=== PATIENT | male | born 1985 ===

== ENCOUNTER 2018-05-31 15:13 | Inpatient (IN) | payer SELFPAY ==
[2018-05-31] MEDS ORDERED: Midazolam HCl 5 mg/ml Vial ONE ×2 (15:19→15:42)
[2018-05-31] MEDS ORDERED: Lorazepam 2 MG/ML VIAL ONE (15:33)
[2018-05-31 15:37] LABS: #Basophils 0.1 thou/uL (0.0-0.2); #Eosinphils 0.1 thou/uL (0.0-0.7); #Lymphocytes 3.2 thou/uL (1.20-3.40); #Monocytes 0.8 thou/uL (0.11-0.59); #Neutrophils 6.4 thou/uL (1.40-6.50); %Basophils 1.3 % (0.0-1.0); %Eosinophils 1.3 % (0.0-10.0); %Lymphocytes 29.5 % (21.0-51.0); %Monocytes 7.8 % (0.0-10.0); %Neutrophils 60.2 % (42.0-75.0); Hemoglobin 15.2 g/dL (14.0-18.0); Mean Corpuscular HGB CONC 33.7 g/dL (32.0-36.0); Mean Corpuscular Hemoglobin 33.5 pg (27.0-31.0); Mean Corpuscular Volume 99.4 fL (78.0-98.0); Mean Platelet Volume 7.5 fL (7.4-10.4); Platelet Count 196 thou/uL (130-400); RBC Distribution Width 12.1 % (11.5-14.5); Red Blood Cell (RBC) Count 4.52 mill/uL (4.70-6.10); White Blood Cell (WBC) Count 10.7 thou/uL (4.8-10.8)
[2018-05-31 15:45] LABS: INR-International Normal Ratio 1.1; PTT 28.6 SEC (22.9-36.1); Prothrombin Time 14.2 SEC (12.0-14.7)
--- NOTE | 2018-05-31 15:54 | RAD ---
AP CHEST: 05/31/18 HISTORY: Shortness of breath and chest pain. Supine portable exam obtained. ET tube has been placed and the tip is well above the nitish. The lung lindsay are well aerated and clear. Heart and mediastinum unremarkable. The visualized osseous structures appear intact. IMPRESSION: No acute process identified. POS: [facility]
[2018-05-31 15:56] LABS: Troponin I Less than 0.010 ng/mL (< 0.028)
[2018-05-31 16:10] LABS: Acetaminophen Less than 6.0 mcg/mL (10.0-30.0); Alcohol Less than 10 mg/dL (Less than 10); Salicylate Less than 8.0 mg/dL (15.0-30.0)
[2018-05-31 16:14] LABS: Actual Bicarbonate (HCO3a) 24.8 mEq/L (22-28); Analyzer IN Cardio ER; Base Excess (BEa) -2.7 mEq/L (-2.0 to +3.0); CO2 Tension 53.7 mmHg (35.0-45.0); Calcium, Ionized 1.18 mmol/L (1.12-1.30); Carboxyhemoglobin (COHb) 3.9 gm% (0.0-3.0); Hemoglobin (Hb) 15.5 g/dL (14.0-18.0); O2 Tension (PaO2) 329.9 mmHg (80.0-100.0); Potassium - ABG Lab 4.42 mmol/L (3.70-5.30); pH, Arterial 7.28 (7.35-7.45)
[2018-05-31 16:16] LABS: ALV-art Gradient -40.525 (0-20); Puncture Site RB
--- NOTE | 2018-05-31 16:19 | CT ---
CT HEAD WITHOUT CONTRAST: INDICATIONS: Seizure. Respiratory depression. The patient is currently intubated. COMPARISON: No comparison films. TECHNIQUE: Multiple axial tomograms obtained through the head without IV enhancement. FINDINGS: The ventricles are mildly prominent for age. There is no evidence of mass or hemorrhage. There is a bnormal white matter lucency seen in both cerebral hemispheres. There is a question of sulcal efface ment in the frontal lobes. The paranasal sinuses are aerated. The bony calvarium is unremarkable. IMPRESSION: Abnormal lucency in the deep white matter of both cerebral hemispheres. Questionable sulcal effaceme nt of the frontal lobes. These findings are abnormal in this aged patient. Recommend further evaluation with MRI brain. POS: [facility]
--- NOTE | 2018-05-31 16:20 | CT ---
CT CERVICAL SPINE: INDICATIONS: Seizure. Found unconscious. TECHNIQUE: Multiple axial tomograms obtained through the cervical spine with multiplanar reconstruction. FINDINGS: The cervical vertebrae maintain normal height and alignment. Disk spaces are preserved. No evidence of a cervical spine fracture identified. IMPRESSION: No evidence of cervical spine fracture. POS: [facility]
[2018-05-31] MEDS ORDERED: Propofol 1,000 MG/100 ML VIAL IV ONE (16:27)
--- NOTE | 2018-05-31 16:29 | RAD ---
SUPINE CHEST: HISTORY: Seizure. Found unconscious. FINDINGS: ET tube is in place. An NG tube has been placed, and the tip overlies the left upper quadrant. The lung lindsay appear clear. The ET tube is well above the nitish. IMPRESSION: Endotracheal tube and nasogastric tube appear normally positioned. No acute process apparent. POS: [facility]
[2018-05-31 16:34] LABS: Carbamazepine-Tegretol Less than 1.9 ug/mL (4.0-12.0)
[2018-05-31] MEDS ORDERED: levETIRAcetam 500 MG/100 ML PREMIX BAG ONE (17:00)
[2018-05-31 17:02] LABS: Albumin 4.1 g/dL (3.5-5.0)
[2018-05-31 17:03] LABS: Chloride 105 mmol/L (98-107)
[2018-05-31 17:04] LABS: Calcium 8.9 mg/dL (7.8-10.44); Potassium 5.4 mmol/L (3.5-5.1); Sodium 138 mmol/L (136-145)
[2018-05-31 17:05] LABS: Globulin 3.3 g/dL (2.4-3.5); Glucose 109 mg/dL (70-105); Protein, Total 7.4 g/dL (6.0-8.3)
[2018-05-31 17:06] LABS: Anion Gap 18 mmol/L (10-20); Carbon Dioxide 20 mmol/L (22-29)
[2018-05-31 17:07] LABS: Bilirubin, Total 0.3 mg/dL (0.2-1.2)
[2018-05-31 17:08] LABS: Alkaline Phosphatase 79 U/L (40-150); Calc. Creatinine Clearance 0 mL/min (70-130); Estimated GFR-MDRD 68
[2018-05-31 17:09] LABS: BUN (Urea Nitrogen) 6 mg/dL (8.9-20.6)
[2018-05-31 17:10] LABS: AST (SGOT) 24 U/L (5-34)
[2018-05-31 17:10] LABS: Amphetamine Not Detected (NotDetected); Barbiturates Screen Not Detected (NotDetected); Benzodiazepine Screen Detected (NotDetected); Cocaine Metabolite Screen Not Detected (NotDetected); Medtox Control Line Valid? VALID (VALID); Medtox Reader # READER 4; Methadone Not Detected (NotDetected); Methamphetamine Not Detected (NotDetected); Opiate Screen Not Detected (NotDetected); Oxycodone Screen Not Detected (NotDetected); Phencyclidine (PCP) Not Detected (NotDetected); THC/Cannabinoid Screen Detected (NotDetected); Tricyclic Screen Not Detected (NotDetected)
[2018-05-31 17:11] LABS: ALT (SGPT) 17 U/L (8-55); CK (CPK) 130 U/L (30-200)
[2018-05-31 17:16] LABS: Bilirubin Negative (Negative); Blood, Urine Negative (Negative); Clarity CLEAR (Clear); Glucose, Urine (Dipstick) Negative (Negative); Leukocyte Negative (Negative); Nitrite Negative (Negative); Protein, Urine (Dipstick) 100 mg/dL (Neg-Trace); Specific Gravity, Urine 1.025 (1.002-1.036); Urobilinogen 0.2 mg/dL (0.2-1.0)
[2018-05-31 17:19] LABS: Bacteria/HPF None Seen HPF (None Seen); Pathc Cast-AUWi Flag 2.47 (0-2.49)
[2018-05-31 17:28] LABS: Hyaline Casts/LPF 0-3 HYALINE CAST LPF (0-3 Hyaline)
[2018-05-31 17:29] LABS: Renal Epithelial 0-3 HPF (0-3); Transitional Epithelial 0-3 HPF (0-3)
[2018-05-31] MEDS ORDERED: Lacri-Lube Opth Oint 3.5 GM TUBE EA EYE PRN (17:40)
[2018-05-31] MEDS ORDERED: Acetaminophen 650 MG Suppository PR PRN (17:40)
[2018-05-31] MEDS ORDERED: Ondansetron HCl/PF 4 MG/2 ML Vial IVP PRN (17:40)
[2018-05-31] MEDS ORDERED: Acetaminophen 650 MG/20.3 ML UDCUP PO PRN (17:40)
[2018-05-31] MEDS ORDERED: Bisacodyl 10 MG SUPP PR PRN (17:40)
[2018-05-31] MEDS ORDERED: Labetalol HCl 100 MG/20 ML VIAL SLOW IVP PRN (17:45)
[2018-05-31] MEDS ORDERED: Ventilator Sedation Protocol 1 EACH FS SCH (17:45)
--- NOTE | 2018-05-31 17:53 | HP ---
DATE OF ADMISSION: 05/31/2018 PRIMARY CARE PHYSICIAN: OLIVE Osborn. PRIMARY NEUROLOGIST: Bladimir Fuentes M.D. CHIEF COMPLAINT: Seizure. HISTORY OF PRESENT ILLNESS: Patient is a 33-year-old -[place] male with seizure disorder, cu rrently on Keppra presented to the hospital by EMS with an episode of seizure. There is no family at the bedside. History obtained from the review of ER chart. Dr. Fuentes's office record from March as also reviewed. According to Dr. Fuentes's office record, the patient was admitted to the hospital in January of this year after a generalized tonic clonic seizure. It is unclear what hospital he was ad mitted. He had a quite prolonged period of postictal confusion. EEG was unremarkable. His cortisol level was normal. He was then discharged home on Keppra. He was seen at Dr. Fuentes's office on 03/20/2018. He was advised to continue Keppra 500 mg twice a day. Per ER record, he also has history of adrenoleukodystrophy. The patient was brought in to the emergency room with a generalized tonic clonic seizure per ER recor d. He was only responding to pain per ER record. He received 2 mg Versed by the EMS. When he arriv ed to the emergency room, he was not able to maintain airway and was subsequently intubated. No info rmation is available from the patient due to current cognitive status. He was outside mowing his law n. He fell on the floor and hit his head. He had some bleeding from the head injury. In the emergency room, initial vital signs showed a pulse rate of 58, respiration 17, blood pressure 141/96. CT scan of the brain was negative for acute findings except for some abnormal lucency in the deep white matter of both cerebral hemispheres. Cervical spine CT was negative for fractures. Ches t x-ray was negative for infiltrate. He received IV fluid, Keppra, fentanyl, Versed, lorazepam, etom idate and 100 mg of succinylcholine by the EMS. PAST MEDICAL HISTORY: 1. Seizure disorder. 2. Adrenal leukodystrophy per ER record. PAST SURGICAL HISTORY: Cannot be obtained from the patient due to current cognitive status. ALLERGIES: No known drug allergies. CURRENT HOME MEDICATIONS: Keppra 500 mg twice a day. SOCIAL HISTORY, FAMILY HISTORY, REVIEW OF SYSTEMS: Cannot be obtained from the patient due to curren t cognitive status. PHYSICAL EXAMINATION: VITAL SIGNS: The patient is currently intubated and sedated on mechanical ventilation. HEENT: The patient has abrasion over the left frontal area. No other head injury noted. Pupils wer e 2 mm bilaterally with sluggish response to light. There was no nystagmus. Endotracheal tube noted . NECK: Supple. C-collar in place. No meningeal sign. LUNGS: Symmetrical. Coarse breath sounds bilaterally. No rales or wheezing. HEART: S1, S2 present. Regular rate and rhythm. No rubs or gallops. ABDOMEN: Soft. Bowel sounds present, no rebound, guarding appreciated. EXTREMITIES: No edema or calf tenderness. NEUROLOGIC: As discussed above. Patient is currently sedated. Tone appears to be normal. PSYCHIATRY: As discussed above. SKIN: Warm and dry. LYMPH NODES: No palpable lymph nodes in the neck. PERIPHERAL VASCULAR: Radial pulses palpable bilaterally. MUSCULOSKELETAL: No joint swelling or tenderness. LABORATORY AND X-RAY FINDINGS: CBC showed WBC 10.7 with hemoglobin 15.2, hematocrit 44.9, platelet c ount of 196. Chemistries showed sodium of 138, potassium 5.4, chloride 105, bicarb 20, BUN 6, creati nine 1.22. LFTs in normal range. Troponins were normal. Urine drug screen was positive for cannabi noids. Alcohol level was negative. Carbamazepine, valproic acid and Dilantin level was negative. T ylenol level was negative. ABG showed pH 7.28, pCO2 of 53.7, pO2 of 329. Bicarbonate of 24.8. PT, INR, PTT normal range. EKG by my review showed sinus tachycardia. Chest x-ray by my review, which w as negative for infiltrate. IMPRESSION AND PLAN: 1. Status epilepticus. The patient will be monitored in the CCU. We will continue Keppra. P.r.n. benzodiazepines. We will consult Neurology. We will obtain EEG after discussion with Neurology. Se izure precautions. 2. Acute hypoxic and hypercapnic respiratory failure/unable to protect airway requiring mechanical v entilation. We will consult Critical Care. We will continue ventilation sedation protocol. Repeat ABGs in a.m. 3. History of seizure disorder. 4. Adrenal leukodystrophy. 5. Hyperkalemia, probably secondary to acidosis. 6. Metabolic acidosis. 7. Dehydration. 8. Macrocytosis. 9. Cannabis abuse. 10. Abnormal lucency in the deep white matter of both cerebral hemispheres on the CT brain. We will discuss with Neurology. We will discuss the plan of care with the family when they arrive. The patient will require 3-4 days for stabilization.
[2018-05-31] MEDS ORDERED: DISCONTINUE PREVIOUS NARCOTIC PAIN MEDICATIONS AND BENZODIAZEPINES FS SCH (18:19)
[2018-05-31] MEDS ORDERED: Lorazepam 2 MG/ML VIAL SLOW IVP PRN (18:19)
[2018-05-31] MEDS ORDERED: Fentanyl BOLUS 250 ML IVPB PRN (18:19)
[2018-05-31] MEDS ORDERED: fentaNYL Citrate/PF 2,000 MCG in Sodium Chloride 0.9% 60 ML IV SCH (18:19)
[2018-05-31] MEDS ORDERED: Propofol BOLUS 1,000 MG/100 ML VIAL IV PRN (18:19)
[2018-05-31] MEDS ORDERED: Morphine 4 MG/ML VIAL SLOW IVP PRN (18:45)
[2018-05-31] MEDS: Dextrose 5 %-0.45 % NaCl 1,000 ML IV SCH (19:35)
[2018-05-31] MEDS: Propofol 1,000 MG/100 ML VIAL IV PRN (20:24)
[2018-05-31] MEDS: Famotidine/PF 20 mg/2ml Vial SLOW IVP SCH (21:31)
[2018-06-01] MEDS: Dextrose 5 %-0.45 % NaCl 1,000 ML IV SCH ×2 (02:47→09:27)
[2018-06-01] MEDS: Propofol 1,000 MG/100 ML VIAL IV PRN ×2 (02:48→08:31)
[2018-06-01 05:23] VITALS: BMI 25.1
[2018-06-01 05:24] LABS: #Eosinphils 0.1 thou/uL (0.0-0.7); #Lymphocytes 2.8 thou/uL (1.20-3.40); #Monocytes 0.8 thou/uL (0.11-0.59); %Basophils 0.5 % (0.0-1.0); %Eosinophils 0.9 % (0.0-10.0); %Lymphocytes 31.8 % (21.0-51.0); %Monocytes 9.2 % (0.0-10.0); %Neutrophils 57.6 % (42.0-75.0); Hemoglobin 13.2 g/dL (14.0-18.0); Mean Corpuscular HGB CONC 33.7 g/dL (32.0-36.0); Mean Corpuscular Hemoglobin 33.5 pg (27.0-31.0); Mean Corpuscular Volume 99.3 fL (78.0-98.0); Mean Platelet Volume 8.4 fL (7.4-10.4); Platelet Count 189 thou/uL (130-400); Red Blood Cell (RBC) Count 3.95 mill/uL (4.70-6.10); White Blood Cell (WBC) Count 8.8 thou/uL (4.8-10.8)
[2018-06-01 05:36] LABS: ALT (SGPT) 13 U/L (8-55); AST (SGOT) 22 U/L (5-34); Albumin 3.4 g/dL (3.5-5.0); Alkaline Phosphatase 66 U/L (40-150); Anion Gap 11 mmol/L (10-20); BUN (Urea Nitrogen) 5 mg/dL (8.9-20.6); Bilirubin, Total 0.4 mg/dL (0.2-1.2); Calc. Creatinine Clearance 130 mL/min (70-130); Calcium 8.5 mg/dL (7.8-10.44); Carbon Dioxide 23 mmol/L (22-29); Chloride 111 mmol/L (98-107); Estimated GFR-MDRD Greater than 90; Globulin 2.9 g/dL (2.4-3.5); Glucose 118 mg/dL (70-105); Magnesium 1.6 mg/dL (1.6-2.6); Phosphorus 2.3 mg/dL (2.3-4.7); Potassium 3.5 mmol/L (3.5-5.1); Protein, Total 6.3 g/dL (6.0-8.3); Sodium 141 mmol/L (136-145)
[2018-06-01 07:57] LABS: Actual Bicarbonate (HCO3a) 20.9 mEq/L (22-28); Base Excess (BEa) -1.1 mEq/L (-2.0 to +3.0); CO2 Tension 28.1 mmHg (35.0-45.0); Calcium, Ionized 1.17 mmol/L (1.12-1.30); Carboxyhemoglobin (COHb) 0.8 gm% (0.0-3.0); Hemoglobin (Hb) 13.9 g/dL (14.0-18.0); O2 Tension (PaO2) 114.4 mmHg (80.0-100.0); Potassium - ABG Lab 3.33 mmol/L (3.70-5.30); pH, Arterial 7.49 (7.35-7.45)
[2018-06-01] MEDS: cefTRIAXone\\ROCEPHIN 2 GM in Sodium Chloride 0.9% 100 ML IVPB SCH (08:39)
[2018-06-01] MEDS: Famotidine/PF 20 mg/2ml Vial SLOW IVP SCH ×3 (08:40→22:26)
[2018-06-01 08:50] LABS: Puncture Site RBA
[2018-06-01 08:51] LABS: ALV-art Gradient 64.375 (0-20)
[2018-06-01] MEDS ORDERED: DC Sedation Protocol FS ONE (09:17)
--- NOTE | 2018-06-01 09:17 | RAD ---
PORTABLE AP CHEST XRAY: DATE: 06/01/18. HISTORY: Daily followup evaluation. Patient on ventilator. COMPARISON: 05/31/18. FINDINGS: Endotracheal tube and nasogastric tubes remain in place and unchanged in position. The patient is ro tated to the left, but the lungs do again appear clear. Cardiac silhouette and pulmonary vasculature are within normal limits. No other interval change. IMPRESSION: Stable chest with endotracheal tube and nasogastric tubes unchanged in position. POS: [facility]
--- NOTE | 2018-06-01 09:52 | PDOC.PN ---
- Subjective Encounter Start Date: 06/01/18 Encounter Start Time: 09:51 Mr. Oconnor was seen today in follow-up of seizure. He was extubated today. He is still groggy, and muttering some sounds, but not any intelligible words. He is moveing all extremities. - Objective Resuscitation Status: Resuscitation Status FULL:Full Resuscitation MAR Reviewed: Yes Vital Signs & Weight: Vital Signs (12 hours) Temp Pulse Resp BP Pulse Ox 06/01/18 09:15 79 28 H 95 06/01/18 08:00 14 06/01/18 07:44 59 L 129/86 06/01/18 07:09 99 06/01/18 07:00 98.8 F 06/01/18 04:00 98.2 F 06/01/18 02:31 61 06/01/18 00:00 98.2 F 05/31/18 22:23 55 L Weight Weight 185 lb 3.013 oz Most Recent Monitor Data Heart Rate from ECG 71 NIBP 135/91 NIBP BP-Mean 105 Respiration from ECG 19 SpO2 99 I&O: 05/31/18 06/01/18 06/02/18 06:59 06:59 06:59 Intake Total 1609 0 Output Total 1740 450 Balance -131 -450 Result Diagrams: 06/01/18 04:41 06/01/18 04:41 Phys Exam - Physical Examination HEENT: PERRLA, sclera anicteric Respiratory: no wheezing, no rales, no rhonchi, clear to auscultation bilateral Cardiovascular: RRR, no significant murmur, no rub Gastrointestinal: soft, non-tender, no distention, positive bowel sounds Musculoskeletal: no edema Neurological: non-focal, moves all 4 limbs Dx/Plan (1) Seizure disorder Code(s): G40.909 - EPILEPSY, UNSP, NOT INTRACTABLE, WITHOUT STATUS EPILEPTICUS Status: Acute (2) Acute respiratory failure with hypoxia and hypercapnia Code(s): J96.01 - ACUTE RESPIRATORY FAILURE WITH HYPOXIA; J96.02 - ACUTE RESPIRATORY FAILURE WITH HYPERCAPNIA Status: Acute - Plan * Seizure disorder- he has been extubated- will continue Keppra at the current dose, and ATiven as needed for break through seizures. I spoke with the patient' s who was at the bedside, and she says the patient may have forgotten to take one of the doses of hs Keppra * Await further recommendations from Neuology . * Acute respiratory failure- improved- continue supplemental oxygen as needed, and aggressive respiratory care. ( CXR reviewed by me, no infiltrats, normal heart size) * Adrenal glad disease- ? etiology- he appears stable from this standpoint
--- NOTE | 2018-06-01 11:09 | CON ---
DATE OF CONSULTATION: 06/01/2018 HISTORY OF PRESENT ILLNESS: Mr. Jesus Oconnor is a 33-year-old -[place] gentleman, who was bro ught into the ER by his , who states that the patient was mowing the lawn. He then apparently we nt to cooling. He had apparently fell down and hit his head and apparently seized. EMS was called i n. His breathing had decreased. Apparently, he was intubated somewhere. The patient has known history of seizure disorder, and has been seeing a local physician here. His w bryn is at the bedside, who gives adequate history, who states he smokes a pack a day. No alcohol int sheila at this time. Previous history of alcohol abuse. PAST MEDICAL HISTORY: No history of diabetes or hypertension. PREVIOUS SURGERIES: None recently. CHRONIC MEDICATIONS: Keppra 500 mg twice a day. REVIEW OF SYSTEMS: Otherwise unobtainable. PHYSICAL EXAMINATION: GENERAL: Sedation withheld. He is awake, responsive. VITAL SIGNS: Pulse is 72, blood pressure 140/80, sats 90%, respirations 27. NEUROLOGIC: He is awake, opens his eyes, moves all 4 extremities. CHEST: No wheezing or crackles. CARDIAC: Normal S1 and S2. No gallops. ABDOMEN: Soft, no masses. LABORATORY DATA: White count 8000, H and H is 13 and 39, platelet count 189, pO2 is 114, pCO2 is 28, pH 7.49 and that is on rate of 20. His electrolytes are normal. Drug screen was positive for benzos and cannabinoids. IMAGING: He had a CT done of his brain, which showed an abnormal CT of unknown significance and MRI is suggested, await input from Neurology. His chest x-ray was normal. A CT of his neck was negative . IMPRESSION: 1. History of seizure disorders. 2. Status post fall. 3. Tobacco abuse. PLAN: Sedation withheld. We will wean and extubate. Keppra will be increased to 750 twice a day. Await input from Neurology. Supportive care. He has an underlying medical issue, apparently labeled as adrenoleukodystrophy. A 45-minute critical care time.
--- NOTE | 2018-06-01 13:19 | CON ---
DATE OF CONSULTATION: 05/31/2018 REFERRING PHYSICIAN: ER physician, Dr. Marley Medina. REASON FOR CONSULTATION: Status epilepticus. HISTORY OF PRESENT ILLNESS: Mr. Oconnor is a 33-year-old -[place] male, who has been consulted for evaluation of status epilepticus. History is very limited and primarily obtained from the [facility]'s medical chart and ER physician as there are no family member present at bedside and the patient is unable to provide. Apparently, the patient has a history of seizure disorder. He was recently se en by Dr. Fuentes in outpatient clinic where he was diagnosed with a generalized tonic-clonic seizure . He was started on Keppra 500 mg b.i.d. He was at home on today mowing his lawn, where he is sudde nly fell down and hit his head. He was found to be having a seizure at that time and EMS was called by family members. On arrival to the EMS, the patient was continued to have seizures and thus he was given Versed 2 mg. He was brought to the [facility] as he was not able to protect hi s airways. He was intubated. He was given multiple rounds of Ativan to control his seizures as well and he was given 500 mg Keppra IV. On my evaluation in the ER, the patient was on sedation with pro pofol, restless, but not actively having any seizure type activity. PAST MEDICAL HISTORY, PAST SURGICAL HISTORY, SOCIAL HISTORY, FAMILY HISTORY, CURRENT MEDICATIONS, ALL ERGIES, AND REVIEW OF SYSTEMS: Could not be obtained. PHYSICAL EXAMINATION: VITAL SIGNS: Blood pressure of 141/96, pulse of 58, respirations 17, O2 sats of 100% on mechanical v entilation. He was afebrile. GENERAL: Intubated, sedated, -[place] male, in no apparent distress. RESPIRATORY: Clear to auscultation bilaterally. CARDIOVASCULAR: Regular rate and rhythm. NEUROLOGIC: Mental status: The patient is intubated and sedated with propofol. Cranial nerves: Pu pils are 3 mm and reactive. Face appears symmetric. He does have a cough and gag reflex. Motor exa m showed normal tone and bulk. He is moving both upper and lower extremities spontaneously as well a s to pain. LABORATORY DATA: I reviewed, which included CBC, CMP, urinalysis, and urine drug screen, which is si gnificant for potassium of 5.4 and Urine drug screen positive for cannabinoids and benzodiazepine, ot herwise unremarkable. IMAGING STUDIES: CT head without contrast was reviewed, which showed no acute intracranial abnormali ty. There was abnormal lucency in the deep white matter of both cerebral hemispheres. There is also a questionable sulcal effacement of the frontal lobes. IMPRESSION: 1. Status epilepticus. 2. Generalized tonic-clonic seizure. ASSESSMENT AND PLAN: Mr. Oconnor is a 33-year-old -[place] male with history of seizure disord er, who presented with the recurrent seizures and status epilepticus. At this time, I would recommen d continuing on Keppra 500 mg b.i.d., this can be increased to 750 mg b.i.d. If he continues to have seizure, I may increase the dose to 1000 mg b.i.d. I will follow up on tomorrow and provide further recommendations at that time. Continue supportive care.
[2018-06-01] MEDS ORDERED: Acetaminophen 325 MG TAB PO PRN (14:03)
--- NOTE | 2018-06-01 17:58 | PRG ---
DATE OF SERVICE: 06/01/2018 SUBJECTIVE: Mr. Oconnor is a pleasant 33-year-old male with a history of seizure diso rder presented with the recurrent seizures and in status epilepticus. He was intubated yesterday to protect his airways. He has not had any seizure over the past 24 hours. He was extubated this [facility] and has been transferred to stroke unit. He has not had any seizures since being admitted to the hospital. There is no family member at bedside. He is somewhat confused-appearing during my evaluat ion today and does not necessarily follow any commands or discuss with me in any detail. PHYSICAL EXAMINATION: VITAL SIGNS: Blood pressure of 123/83, pulse of 49, temperature of 98.4, respirations of 20, O2 sats of 100% on room air. GENERAL: Well-developed, well-nourished, -[place] male sitting in a chair in no apparent dis tress. RESPIRATORY: Clear to auscultation bilaterally. CARDIOVASCULAR: Regular rate and rhythm. NEUROLOGIC: Mental status: The patient is awake, alert, oriented x3. Speech and language: Fluent speech. Cranial nerves: Pupils are 3 mm and reactive. Visual lindsay are full to threat. Extraocul ar muscles are intact. No nystagmus. Face is symmetric. Tongue and uvula are midline. Motor exam showed normal tone and bulk with 5/5 strength in both upper and lower extremities. Sensory: Sensati on is intact and symmetric. Deep tendon reflexes 2+ reflexes in both upper and lower extremities. B abinski: Plantar responses flexion bilaterally. LABORATORY DATA: Reviewed, which included CBC and CMP, which is significant for hemoglobin of 13.2, hematocrit of 39.2, otherwise unremarkable. IMPRESSION: 1. Status epilepticus, now resolved. 2. Generalized tonic-clonic seizure disorder. ASSESSMENT AND PLAN: Mr. Oconnor is a pleasant 33-year-old male with a history of sei zure disorder diagnosed recently presented with recurrent seizures. He had to be intubated to protec t his airways. He has been seizure-free since being admitted to the hospital. He was able to be wea shereen off ventilation and now on room air. At this time, I will recommend continuing him on Keppra 750 mg b.i.d. If he remains seizure-free, then he is okay to be discharged to home tomorrow morning and follow up with Dr. Fuentes as outpatient in 3-4 weeks. Thank you for your consultation.
[2018-06-01] MEDS: Famotidine 20 MG TAB PO SCH ×2 (22:24→23:47)
[2018-06-01] MEDS: levETIRAcetam 500 MG TAB PO SCH ×2 (22:25→23:47)
[2018-06-02 07:51] VITALS: BP 118/80; TEMP 97.8
[2018-06-02] MEDS ORDERED: levETIRAcetam 500 MG TAB PO SCH (09:00)
[2018-06-02] MEDS ORDERED: Famotidine 20 MG TAB PO SCH (09:00)
[2018-06-02] MEDS: cefTRIAXone\\ROCEPHIN 2 GM in Sodium Chloride 0.9% 100 ML IVPB SCH (09:26)
--- NOTE | 2018-06-02 10:20 | PDOC.PN ---
- Subjective Encounter Start Date: 06/02/18 Encounter Start Time: 10:19 Mr. Oconnor does not have any complaints. No seizure activity was reported. - Objective Resuscitation Status: Resuscitation Status FULL:Full Resuscitation MAR Reviewed: Yes Vital Signs & Weight: Vital Signs (12 hours) Temp Pulse Resp BP Pulse Ox 06/02/18 07:50 97.8 F 66 16 118/80 98 06/02/18 07:30 100 06/02/18 00:00 99.0 F 75 16 113/73 98 Weight Weight 185 lb Most Recent Monitor Data Heart Rate from ECG 61 NIBP 132/85 NIBP BP-Mean 100 Respiration from ECG 19 SpO2 98 I&O: 06/01/18 06/02/18 06/03/18 06:59 06:59 06:59 Intake Total 1609 625 Output Total 1740 780 Balance -131 -155 Result Diagrams: 06/01/18 04:41 06/01/18 04:41 Phys Exam - Physical Examination HEENT: PERRLA Respiratory: no wheezing, no rales, no rhonchi, clear to auscultation bilateral Cardiovascular: RRR, no significant murmur, no rub Musculoskeletal: no edema Dx/Plan (1) Seizure disorder Code(s): G40.909 - EPILEPSY, UNSP, NOT INTRACTABLE, WITHOUT STATUS EPILEPTICUS Status: Acute (2) Acute respiratory failure with hypoxia and hypercapnia Code(s): J96.01 - ACUTE RESPIRATORY FAILURE WITH HYPOXIA; J96.02 - ACUTE RESPIRATORY FAILURE WITH HYPERCAPNIA Status: Acute - Plan * Seizure disorder- continue the higher dose of Keppra, 750mg twice a day * Stable for discharge home..
--- NOTE | 2018-06-02 13:59 | DIS ---
PRIMARY CARE PHYSICIAN: Dr. Karimi. DATE OF ADMISSION: 05/31/2018 DATE OF DISCHARGE: 06/02/2018 DISCHARGE DISPOSITION: Home. PRIMARY DISCHARGE DIAGNOSES: 1. Seizure disorder. 2. Adrenal leukodystrophy. DISCHARGE MEDICATIONS: There were no changes in his medications and he is to continue Keppra 750 mg twice a day. PROCEDURES DONE DURING ADMISSION: The patient had a CT scan of the cervical spine showing no evidenc e of any cervical spine fracture. The patient had a CT scan of the brain that showed an abnormal guilherme ency in the deep white matter of both cerebral hemispheres questionable sulcal effacement of the fron xin lobes. CODE STATUS: FULL CODE. ALLERGIES: No known allergies. HOSPITAL COURSE: Mr. Oconnor is a 33-year-old gentleman who was brought into the hospital after suffer ing a seizure at home. In the ER, they were concerned that he was not able to maintain his airway, s o therefore he was intubated. He remained intubated overnight and was seen by the critical care spec ialist and was likely able to be extubated the following morning. By this time, the seizures were co ntrolled. He was placed on IV Keppra as well as Ativan IV as needed for seizures. He had been under midazolam sedation while intubated. In discussion with the patient's , she did admit that somet imes he will miss a dose or two of his Keppra. She is not sure whether he missed some prior to this hospital stay. He was seen by Dr. Shankar who was electronic communications technician for Dr. Fuentes. He did not recommend any fu rther evaluation or further workup at this time and no change in medications. He remained seizure fr ee on his usual dose of Keppra, and he will be discharged home today to have close followup with Dr. Fuentes in approximately 3-4 weeks.
== END 2018-06-02 10:43 | disposition home or self-care (01) | DRG 208 ==
LOC: EDBD 15:13 → ERS 15:13 → CCU 18:15 → 2SE 06-01 14:19
PROVIDERS: ADMIT Internal Medicine; ATTEND Internal Medicine
PROC: 5A1945Z Respiratory Ventilation, 24-96 Consecutive Hours (ICD-10-PCS; principal; 2018-05-31)
PROC: 0BH17EZ Insertion of Endotracheal Airway into Trachea, Via Natural or Artificial Opening (ICD-10-PCS; 2018-05-31)
DX: J96.01 Acute respiratory failure with hypoxia (principal); E75.29 Other sphingolipidosis; E87.2 Acidosis; G40.401 Other generalized epilepsy and epileptic syndromes, not intractable, with status epilepticus; J96.02 Acute respiratory failure with hypercapnia; E87.5 Hyperkalemia; E86.0 Dehydration; D75.89 Other specified diseases of blood and blood-forming organs; F12.10 Cannabis abuse, uncomplicated
CPT/HCPCS: 36415; 36416; 51703; 70450; 71045; 72125; 80053; 80156; 80164; 80177; 80185; 80306; 80307; 81003; 81015; 82150; 82553; 82805; 83735; 84100; 84484; 85025; 85610; 85730; 93005; 94002; 94003; 94760; 96365; 96366; 96375; 96376; 99292; A4216; J0696; J1953; J2060; J2250; J2704; J7050; S0028